=== PATIENT | female | born 1965 | race Caucasian/White ===

== ENCOUNTER 2021-01-12 21:49 | Emergency (ER) | payer OTHER ==
[~2021-01-12] VITALS: Ht 149.9 cm; Wt 60.8 kg
[2021-01-12 21:56] VITALS: Ht 149.9 cm; Wt 60.8 kg
[2021-01-12 22:53] LABS: BASOPHIL % 0.9 % (0.2-1.3); PLATELET COUNT 254 x10^3mcL (179-408); RED CELL DISTRIBUTION WIDTH 13.2 % (12.3-17.7)
[2021-01-12 22:59] LABS: CALCIUM 8.2 mg/dL (8.5-10.1); CARBON DIOXIDE 28.7 mmol/L (21-32); CHLORIDE SERUM 106 mmol/L (98-107); CREATININE SERUM 0.7 mg/dL (0.6-1.0); GFR1 > 60 mL/min; GLUCOSE SERUM 102 mg/dL (74-106); POTASSIUM SERUM 3.6 mmol/L (3.5-5.1); SODIUM SERUM 141 mmol/L (136-145)
[2021-01-12 23:03] LABS: ALBUMIN 3.5 g/dL (3.4-5.0); ALKALINE PHOSPHATASE 129 U/L (46-116); ALT/SGPT 21 U/L (14-59); AST/SGOT 18 U/L (15-37); BILIRUBIN TOTAL 0.35 mg/dL (0.20-1.00); LIPASE 103 IU/L (73-393); TOTAL PROTEIN, SERUM 7.1 g/dL (6.4-8.2)
[2021-01-13] MEDS ORDERED: ACETAMINOPHEN500 M5 PO (01:07)
[2021-01-13] MEDS ORDERED: NAPROSYN500 MG PO (01:07)
[2021-01-13 01:21] VITALS: BP 113/36
== END 2021-01-13 01:21 | disposition home or self-care (01) ==
LOC: ED 21:49
PROVIDERS: Emergency Medicine
DX: R07.89 Other chest pain (principal); J45.909 Unspecified asthma, uncomplicated; Z88.0 Allergy status to penicillin
CPT/HCPCS: 83880; J1885; J2270